=== PATIENT | female | born 1990 | race Caucasian/White ===

== ENCOUNTER 2017-08-29 18:05 | Observation (INO) | payer OTHER ==
[2017-08-29 18:07] VITALS: BMI 21.6
[2017-08-29] MEDS ORDERED: Sodium Chloride 0.9% 1,000 ML IV STA (18:21)
--- NOTE | 2017-08-29 18:43 | ED PDOC ---
HPI: Chest Pain Time Seen by Provider: 08/29/17 18:10 Chief Complaint (Nursing): Palpitations Chief Complaint (Provider): Palpitations and Lightheadedness History Per: Patient History/Exam Limitations: no limitations Onset/Duration Of Symptoms: Hrs (since 1400) Current Symptoms Are (Timing): Still Present Pain Scale Rating Of: 4 Quality: "Pain" Additional Complaint(s): Mell Ortiz, a 27 year old female, presents to the ED complaining of lightheadedness, palpitations and shortness of breath x1400. Patient was found to have SVT at rate of 200 beats per minute while in triage. Past Medical History Reviewed: Historical Data, Nursing Documentation, Vital Signs Vital Signs: Last Vital Signs Temp Pulse 119 H 08/29/17 18:35 Resp 20 08/29/17 18:35 BP Pulse Ox 100 08/29/17 18:52 - Medical History PMH: No Chronic Diseases - Surgical History Surgical History: No Surg Hx - Family History Family History: States: Unknown Family Hx - Home Medications Home Medications: Ambulatory Orders Medication Instructions Recorded No Known Home Med 08/29/17 - Allergies Allergies/Adverse Reactions: Allergies Allergy/AdvReac Type Severity Reaction Status Date / Time No Known Allergies Allergy Verified 08/29/17 18:07 Review of Systems ROS Statement: Except As Marked, All Systems Reviewed And Found Negative Cardiovascular: Positive for: Palpitations, Light Headedness Respiratory: Positive for: Shortness of Breath Physical Exam - Reviewed Nursing Documentation Reviewed: Yes Vital Signs Reviewed: Yes - Physical Exam Appears: Positive for: Non-toxic, No Acute Distress Head Exam: Positive for: ATRAUMATIC, NORMAL INSPECTION, NORMOCEPHALIC Skin: Positive for: Normal Color, Warm, Dry. Negative for: Rash Eye Exam: Positive for: Normal appearance, EOMI, PERRL. Negative for: Nystagmus Neck: Positive for: Normal, Painless ROM, Supple Cardiovascular/Chest: Positive for: Chest Non Tender, Tachycardia (200 bpm) Respiratory: Positive for: Normal Breath Sounds. Negative for: Rhonchi, Wheezing, Respiratory Distress Gastrointestinal/Abdominal: Positive for: Normal Exam, Bowel Sounds, Soft. Negative for: Guarding, Rebound Back: Positive for: Normal Inspection. Negative for: L CVA Tenderness, R CVA Tenderness Extremity: Positive for: Normal ROM, Tenderness. Negative for: Deformity, Swelling Neurologic/Psych: Positive for: Alert, Oriented, Gait. Negative for: Motor/ Sensory Deficits - Laboratory Results Result Diagrams: 08/29/17 18:31 - ECG O2 Sat by Pulse Oximetry: 100 (RA) Pulse Ox Interpretation: Normal Medical Decision Making Medical Decision Makin Initial Impression: 27 y/o female presenting with palpitations, shortness of breath and lightheadedness Initial Plan: * EKG * CMP * Troponin 1 * Upreg * Udip * CBC * CXR * Adenosine 6 mg IVP * NS 1000 mls IV 100mls/hr * Reevaluation Patient given 6mg of denocard and converted to sinus rhythm at a rate of 100. EKG performed: * Sinus tachycardia with no ST changes. Disposition - Clinical Impression Clinical Impression: Supraventricular tachycardia - Patient ED Disposition Is Patient to be Admitted: Transfer of Care - Disposition Disposition: Transfer of Care Disposition Time: 19:02 Condition: FAIR Forms: [facility] ([employer]) Patient Signed Over To: Max Moreira
[2017-08-29 18:56] LABS: ALB/GLOB RATIO 1.3 (1.0-2.1); ALKALINE PHOSPHATASE 73 U/L (38-126); ALT/SGPT 46 U/L (9-52); AST/SGOT 40 U/L (14-36); BILIRUBIN,TOTAL 0.3 mg/dl (0.2-1.3); BLOOD UREA NITROGEN 17 mg/dl (7-17); CALCIUM 9.3 mg/dL (8.4-10.2); CARBON DIOXIDE 23 mmol/L (22-30); CHLORIDE 107 mmol/L (98-107); GFR AFRICAN-AMERICAN > 60; GLUCOSE,RANDOM 94 mg/dL (65-105); POTASSIUM 3.6 MMOL/L (3.6-5.0); SODIUM 141 mmol/l (132-148); TOTAL PROTEIN 7.4 G/DL (6.3-8.2)
--- NOTE | 2017-08-29 19:15 | ED PDOC ---
- Laboratory Results Result Diagrams: 08/29/17 18:56 08/29/17 18:31 - ECG O2 Sat by Pulse Oximetry: 100 (RA) Pulse Ox Interpretation: Normal Medical Decision Making Medical Decision Making: Patient signed out to provider from Dr. Brown at 1900 pending labs. 2114 labs reviewed no clinically significant abnormalities. Patient will be placed on observation status for further monitoring and treatment. Case referred to Dr. Samuels medical service director instructional material Condition:Fair Scribe Attestation Documented by Yelitza Bland acting as a scribe for Max Moreira MD. Provider Attestation All medical record entries made by the Scribe were at my direction and personally dictated by me. I have reviewed the chart and agree that the record accurately reflects my personal performance of the history, physical exam, medical decision making, and the department course for this patient. I have also personally directed, reviewed, and agree with the discharge instructions and disposition. Disposition Discussed With : Sean Samuels Doctor Will See Patient In The: Hospital Counseled Patient/Family Regarding: Studies Performed, Diagnosis - Clinical Impression Clinical Impression: Supraventricular tachycardia - POA Present On Arrival: None - Disposition Disposition: Hospitalized as Observation Patient Disposition Time: 21:25 Condition: FAIR
[2017-08-29 19:50] LABS: BASO # 0.1 K/uL (0.0-0.2); BASO % 1.3 % (0.0-2.0); EOS # 0.1 K/uL (0.0-0.7); EOS % 0.8 % (0.0-4.0); HEMATOCRIT 36.2 % (34.0-47.0); LYMPH # 2.2 K/uL (1.0-4.3); LYMPH % 33.1 % (20.0-40.0); MEAN CELL VOLUME 79.5 fl (81.0-99.0); MEAN CORPUSCULAR HEMOGLOBIN 25.9 pg (27.0-31.0); MEAN CORPUSCULAR HGB CONC 32.6 g/dL (33.0-37.0); MONO # 0.8 K/uL (0.0-0.8); MONO % 11.8 % (0.0-10.0); NEUT # 3.6 K/uL (1.8-7.0); NRBC % 0.1 % (0.0-0.0); WHITE BLOOD COUNT 6.8 K/uL (4.8-10.8)
[2017-08-29 20:08] LABS: T4 10.2 ug/dl (5.5-11.0)
[2017-08-29 20:21] LABS: THYROID STIMULATING HORMONE 0.69 mIU/ML (0.46-4.68)
[2017-08-30 04:32] VITALS: RESP 20; TEMP 98.2; O2SAT 99
[2017-08-30 08:17] VITALS: BP 102/68
[2017-08-30] MEDS ORDERED: Metoprolol Succinate 25 mg XL Tab PO SCH (09:00)
[2017-08-30 09:43] VITALS: PULSE 90
--- NOTE | 2017-08-30 11:09 | CARD ---
APPROVED REPORT EXAM: Two-dimensional and M-mode echocardiogram with Doppler and color Doppler. Other Information Quality : GoodRhythm : NSR INDICATION Abnormal EKG/Arrhythmia Palpitations SVT 2D DIMENSIONS IVSd0.68 (0.7-1.1cm)LVDd4.78 (3.9-5.9cm) LVOT Diameter1.86 (1.8-2.4cm)PWd0.74 (0.7-1.1cm) IVSs1.20 (0.8-1.2cm)LVDs2.89 (2.5-4.0cm) FS (%) 39.4 %PWs1.00 (0.8-1.2cm) M-Mode DIMENSIONS Left Atrium (MM)3.35 (2.5-4.0cm)IVSd0.54 (0.7-1.1cm) Aortic Root2.34 (2.2-3.7cm)LVDd5.02 (4.0-5.6cm) Aortic Cusp Exc.1.62 (1.5-2.0cm)PWd0.59 (0.7-1.1cm) IVSs1.29 cmFS (%) 43 % LVDs2.86 (2.0-3.8cm)PWs1.13 cm Mitral Valve E/A ratio0.0 TDI E/Lateral E'0.0E/Medial E'0.0 Pulmonary Valve PV Peak Qzarhlmy60.2cm/s LEFT VENTRICLE The left ventricle is normal size. There is normal left ventricular wall thickness. The left ventricular function is normal. The left ventricular ejection fraction is 50-55% There is normal LV segmental wall motion. The left ventricular diastolic function is normal. No left ventricle thrombus noted on this study. There is no ventricular septal defect visualized. There is no left ventricular aneurysm. RIGHT VENTRICLE The right ventricle is normal size. There is normal right ventricular wall thickness. The right ventricular systolic function is normal. ATRIA The left atrium size is normal. The right atrium size is normal. The interatrial septum is intact with no evidence for an atrial septal defect. AORTIC VALVE The aortic valve is normal in structure. No aortic regurgitation is present. There is no aortic valvular stenosis. There is no aortic valvular vegetation. MITRAL VALVE The mitral valve is normal in structure. There is no evidence of mitral valve prolapse. There is no mitral valve stenosis. There is no mitral valve regurgitation noted. TRICUSPID VALVE The tricuspid valve is normal in structure. There is no tricuspid valve regurgitation noted. There is no tricuspid valve prolapse or vegetation. There is no tricuspid valve stenosis. PULMONIC VALVE The pulmonary valve is normal in structure. There is no pulmonic valvular regurgitation. There is no pulmonic valvular stenosis. GREAT VESSELS The aortic root is normal in size. The ascending aorta is normal in size. The IVC is normal in size and collapses >50% with inspiration. PERICARDIAL EFFUSION The pericardium appears normal. There is no pleural effusion. <Conclusion> Normal Echocardiogram
--- NOTE | 2017-08-31 12:06 | CARD ---
APPROVED REPORT EKG Measurement Heart [id number] <Conclusion> Sinus tachycardia Otherwise normal ECG
== END 2017-08-30 13:00 | disposition home or self-care (01) ==
LOC: H.ER 18:05 → H.ERHOLD 21:14 → H.TEL 22:59
PROVIDERS: ADMIT Internal Medicine; ATTEND Internal Medicine
DX: I47.1 Supraventricular tachycardia (principal)
CPT/HCPCS: 36415; 71020; 80053; 81025; 84436; 84443; 84480; 84484; 85025; 93306; 96374; 99285; G0378; J0153; J7040